=== PATIENT | male | born 1985 | race African-American/Black ===

== ENCOUNTER 2016-09-02 22:52 | Emergency (ER) | payer MEDICAID ==
[2016-09-02] MEDS ORDERED: LASIX IVP ONE ×2 (23:13)
--- NOTE | 2016-09-02 23:15 | DR.GENAD ---
HPI - PCP Primary Care Physician: troy - HPI Comment HPI Comment: PATIENT ON HEMODIALYSIS 3 TIMES WEEKLY. HE WENT FOR DIALYSIS FRIDAY BUT MISS TODAY. TONIGHT INCREASING SOB AND COUGHING FROSTY SPUTUM, - Complaint/Symptoms Chief Complaint Doctors Comments: INCREASING SOB, CHEST PAIN AND COUGH. Chief Complaint:: pt having periods of SOB unknowm if pt went too dialysis today pt refusing too answer questions at this time or either too SOB too answer. - Nurses notes reviewed Nurses Notes Review: Yes - Source History Provided: EMS - Mode of Arrival Mode of Arrival: EMS - Timing Onset of Chief Complaint: 09/02/16 Came on: Suddenly - Duration Duration: Constant Duration: Hours - Severity Severity: Moderate PMH - PMH Past Medical History: Yes Past Medical History: CHF, COPD, Hypertension, Renal Disease Past Surgical History: Yes Surgical History: Other - Family History History of Family Medical Conditions: Yes Family Medical History: Hypertension - Social History Alcohol Use: None Do you use any recreational Drugs:: No Lives With: Family Lives Where: Home - infectious screening In the last 2 months have you had wt loss of >10#?: NO Have you had fever, night sweats or hemotysis?: No Have you traveled outside the country in the last 6 months?: No Isolation: Standard ROS - Review of Systems Constitutional: Diaphoresis, Weakness, Fatigue. negative: Chills, Fever Eyes: No Symptoms Reported. negative: Eye Pain, Blurred Vision, Discharge, Photophobia ENTM: Nose Congestion. negative: Ear Pain, Nose Discharge, Throat Pain Respiratoy: Productive Cough, Short of Breath, Wheezing, Hemoptysis Cardiovascular: Chest Pain, Edema, Palpitations Gastrointestinal/Abdominal: Nausea. negative: Abdominal Pain, Diarrhea, Vomiting Genitourinary: negative: Dysuria, Hematuria Neurological: Weakness, Dizziness. negative: Headache Musculoskeletal: Muscle Pain Integumentary: No Symptoms Reported. negative: Change in Color, Rash, Juandice Hematologic/Lymphatic: Anemia Endocrine: No Symptoms Reported All Other Systems: Reviewed and Negative PE - Vital Signs Vitals: Temperature 97.7 F Pulse Rate [Apical] 85 Pulse Rate 93 Respiratory Rate 28 Blood Pressure [Right Arm] 165/83 Blood Pressure 234/118 O2 Sat by Pulse Oximetry 94 - General Limitations: Other (NOT TALKING DUE TO SOB) General Appearance: Alert, In Distress (ACUTE RESPIRATORY DISTRESS.) - Head Head Exam: Atraumatic - Eyes Eye exam: Normal Appearance, PERRL, EOMI. negative: Scleral Icterus, Conjunctival Injection, Nystagmus, Periorbital Swelling, Periorbital Tenderness - ENT ENT Exam: Normal External Ear Exam External Ear Exam: Normal External Inspection TM/Canal Exam: Bilateral Normal Nose Exam: Normal Nose Exam Mouth Exam: Normal Inspection Throat Exam: Normal Inspection - Neck Neck Exam: Trachea Midline, Other (DISTENDED NECK VEINS). negative: Tenderness , Meningismus, Lymphadenopathy - Chest Chest Inspection: Symmetric Chest Wall Rise - Respiratory Respiratory Exam: Respiratory Distress Respiratory Exam: Bilateral Wheezing, Bilateral Rhonchi, Left Rales, Upper Wheezing, Upper Rhonchi, Lower Wheezing, Lower Rales, Lower Rhonchi - Cardiovascular Cardiovascular Exam: Normal Rhythm, Tachycardia, Normal Heart Sounds, JVD, +S3, +S4 - Abdominal Exam Abdominal Exam: Normal Bowel Sounds, Soft. negative: Tenderness - Extremities Extremities Exam: Normal Inspection, Edema - Back Back Exam: Normal Inspection - Neurologic Neurological Exam: Alert, Oriented X3, Other (SOB CAUSING HIM NOT WANTING TO TALK) - Psychiatric Psychiatric Exam: Anxious - Skin Skin Exam: Erythema MDM - Differential Diagnosis Differential Diagnosis: ACUTE PULMONARY EDEMA, CHF. PNEUMONIA, CRF. Course - Treatment Treatment: SEE ORDERS - Consultation Consultation Comments: PATIENT ACCEPTED FOR TRANSFER BY DR. JOHANSEN, HOSPITALIST AT [facility]. - Education/Counseling Education/Counseling: Patient, Education Educated On: Treatment, Diagnosis ROR - Labs Reviewed Laboratory Results Reviewed?: Yes Result Diagrams: 09/02/16 23:18 09/02/16 23:18 Laboratory: 09/03/16 00:23 Sputum - Expectorated Sputum - Final WBC 14.3 X10^3/uL (3.6-10.0) H 09/02/16 23:18 RBC 2.56 X10^6/uL (4.7-6.0) L 09/02/16 23:18 Hgb 7.2 g/dL (13.5-18.0) L 09/02/16 23:18 Hct 22.6 % (42.0-54.0) L 09/02/16 23:18 MCV 88.2 fL (80.0-100.0) 09/02/16 23:18 MCH 27.9 pg (27.0-34.0) 09/02/16 23:18 MCHC 31.6 g/dL (33.0-35.0) L 09/02/16 23:18 RDW 21.1 % (11.6-16.5) H 09/02/16 23:18 Plt Count 221 X10^3/uL (150.0-450.0) 09/02/16 23:18 Plt Count Comment Adequate (ADEQUATE) 09/02/16 23:18 MPV 9.1 fL (7.4-11.0) 09/02/16 23:18 Neut % 84.3 % (42.0-75.0) H 09/02/16 23:18 Lymph % 5.5 % (21.0-51.0) L 09/02/16 23:18 [place] % 4.6 % (0.0-13.0) 09/02/16 23:18 Eos % 5.0 % (0.9-2.9) H 09/02/16 23:18 Baso % 0.6 % (0.2-1.0) 09/02/16 23:18 Neut # 12.1 x10^3/uL (2.2-4.8) H 09/02/16 23:18 Lymph # 0.8 X10^3/uL (1.3-2.9) L 09/02/16 23:18 [place] # 0.7 x10^3/uL (0.3-0.8) 09/02/16 23:18 Eos # 0.7 x10^3/uL (0.0-0.2) H 09/02/16 23:18 Baso # 0.1 X10^3/uL (0.0-0.1) 09/02/16 23:18 Absolute Nucleated RBC 0.0 /100WBC 09/02/16 23:18 Plt Morphology Comment Normal (NORMAL) 09/02/16 23:18 RBC Morphology Abnormal (NORMAL) 09/02/16 23:18 Hypochromasia 1+ A 09/02/16 23:18 Anisocytosis 1+ A 09/02/16 23:18 Sample Site [facility] 09/02/16 23:18 ABG pH 7.400 (7.35-7.45) 09/02/16 23:18 ABG pCO2 43.0 mmHg (35.0-45.0) 09/02/16 23:18 ABG pO2 223.0 mmHg (80.0-100.0) H 09/02/16 23:18 ABG HCO3 26.6 mmol/L (22-26) H 09/02/16 23:18 ABG O2 Saturation 100.0 % (90-100) 09/02/16 23:18 ABG Base Excess 1.5 mmol/L (-2.0-2.0) 09/02/16 23:18 Brandyn Test Na 09/02/16 23:18 A-a Gradient 436.0 mmHg 09/02/16 23:18 FiO2 100.000 09/02/16 23:18 Blood Gas Comments Juli abg well-mtf 09/02/16 23:18 Sodium 144 mmol/L (136-145) 09/02/16 23:18 Corrected Sodium TNP 09/02/16 23:18 Potassium 3.9 mmol/L (3.5-5.1) 09/02/16 23:18 Chloride 102 mmol/L (98-107) 09/02/16 23:18 Carbon Dioxide 25.6 mmol/L (21-32) 09/02/16 23:18 BUN 64 mg/dL (7-18) H 09/02/16 23:18 Creatinine 13.93 mg/dL (0.70-1.30) H 09/02/16 23:18 Est GFR (MDRD) Af Amer 5 (>60) L 09/02/16 23:18 Est GFR (MDRD) Non-Af 4 (>60) L 09/02/16 23:18 Glucose 93 mg/dL (65-99) 09/02/16 23:18 Calcium 9.4 mg/dL (8.5-10.1) 09/02/16 23:18 Corrected Calcium TNP 09/02/16 23:18 Total Bilirubin 0.40 mg/dL (0.2-1.0) 09/02/16 23:18 AST 34 Units/L (15-37) 09/02/16 23:18 ALT 61 Units/L (12-78) 09/02/16 23:18 Alkaline Phosphatase 145 Units/L (46-116) H 09/02/16 23:18 Creatine Kinase 270 Units/L (39-308) 09/02/16 23:18 CK-MB (CK-2) 2.1 ng/mL (0-4.0) 09/02/16 23:18 CK/CKMB % Calc 0.8 % (<4) 09/02/16 23:18 Troponin I 0.03 ng/mL (0-1.5) 09/02/16 23:18 B-Natriuretic Peptide 1520 pg/mL (0-79) H* 09/02/16 23:18 Total Protein 9.1 g/dL (6.4-8.2) H 09/02/16 23:18 Albumin 4.2 g/dL (3.4-5.0) 09/02/16 23:18 Globulin 4.9 g/dL (2.5-4.5) H 09/02/16 23:18 Albumin/Globulin Ratio 0.9 Ratio (1.1-2.1) L 09/02/16 23:18 - XRAY XRAY Interpreted by: Radiologist XRAY Findings: REPORT DISCUSS WITH PATIENT. - EKG Rhythm: ST (EKG NOTED.) - Diagnosis Discharge Problem: CHF (congestive heart failure), Pulmonary vascular congestion, Dialysis patient , End stage renal disease - Discharge Plan Disposition: 02 XFER SHT-TRM HOSP Condition: Stable - Follow ups/Referrals Follow ups/Referrals: NFD,None [Primary Care Provider] - 3 days - Instructions
[2016-09-02 23:22] LABS: ABG BASE EXCESS 1.5 mmol/L (-2.0-2.0); ABG HCO3 26.6 mmol/L (22-26)
[2016-09-02 23:30] LABS: BASOPHILS # (AUTO) 0.1 X10^3/uL (0.0-0.1); BASOPHILS % (AUTO) 0.6 % (0.2-1.0); EOSINOPHILS # (AUTO) 0.7 x10^3/uL (0.0-0.2); HEMATOCRIT 22.6 % (42.0-54.0); HEMOGLOBIN 7.2 g/dL (13.5-18.0); LYMPHOCYTES # (AUTO) 0.8 X10^3/uL (1.3-2.9); LYMPHOCYTES % (AUTO) 5.5 % (21.0-51.0); MEAN CORPUSCULAR HEMOGLOBIN 27.9 pg (27.0-34.0); MEAN CORPUSCULAR HGB CONC 31.6 g/dL (33.0-35.0); MEAN CORPUSCULAR VOLUME 88.2 fL (80.0-100.0); MEAN PLATELET VOLUME 9.1 fL (7.4-11.0); MONOCYTES # (AUTO) 0.7 x10^3/uL (0.3-0.8); MONOCYTES % (AUTO) 4.6 % (0.0-13.0); NEUTROPHILS # (AUTO) 12.1 x10^3/uL (2.2-4.8); NEUTROPHILS % (AUTO) 84.3 % (42.0-75.0); PLATELET COUNT 221 X10^3/uL (150.0-450.0); RED BLOOD COUNT 2.56 X10^6/uL (4.7-6.0); RED CELL DISTRIBUTION WIDTH 21.1 % (11.6-16.5); WHITE BLOOD COUNT 14.3 X10^3/uL (3.6-10.0)
[2016-09-02 23:40] LABS: ANISOCYTOSIS 1+; PLATELET MORPHOLOGY COMMENT NORMAL (NORMAL)
[2016-09-02 23:41] LABS: HYPOCHROMASIA 1+
[2016-09-02 23:50] LABS: BLOOD UREA NITROGEN 64 mg/dL (7-18); CALCIUM 9.4 mg/dL (8.5-10.1); CARBON DIOXIDE 25.6 mmol/L (21-32); CHLORIDE 102 mmol/L (98-107); CREATININE 13.93 mg/dL (0.70-1.30); GLUCOSE 93 mg/dL (65-99); SODIUM 144 mmol/L (136-145); TROPONIN I 0.03 ng/mL (0-1.5); eGFR BLACK RACES 5 (>60); eGFR NON BLACK RACES 4 (>60)
[2016-09-02 23:52] LABS: ALANINE AMINOTRANSFERASE 61 Units/L (12-78); ALBUMIN 4.2 g/dL (3.4-5.0); ALKALINE PHOSPHATASE 145 Units/L (46-116); ASPARTATE AMINO TRANSFERASE 34 Units/L (15-37); CKMB % 0.8 % (<4); CREATINE KINASE 270 Units/L (39-308); CREATINE KINASE MB 2.1 ng/mL (0-4.0); TOTAL PROTEIN 9.1 g/dL (6.4-8.2)
--- NOTE | 2016-09-02 23:58 | RAD ---
EXAM: Chest X-ray INDICATION: Shortness of breath COMPARISION: Prior exam from August 08, 2016 TECHNIQUE: Single view FINDINGS: The heart is moderately enlarged and there is central vascular congestion. The interstitial markings are prominent bilaterally. No pneumothorax. There is consolidation the left lower lobe. There is a small left pleural effusion. The regional skeleton is intact. Right tunnel catheter tip is in the daugherty perior vena cava. IMPRESSION: Findings are most characteristic of changes associated congestive heart failure. There is cardiomega ly, central vascular congestion, and interstitial edema. There is consolidation the left lower lobe and a small left pleural effusion. Reported By:
[2016-09-02 23:59] LABS: B-TYPE NATRIURETIC PEPTIDE 1520 pg/mL (0-79)
[2016-09-03] MEDS ORDERED: VASOTEC INJ 1.25 MG VIAL IVP ONE (00:19)
[2016-09-03] MEDS ORDERED: VASOTEC INJ 1.25 MG VIAL ONE (00:23)
[2016-09-03] MEDS ORDERED: NORMODYNE INJ 20 MG VIAL IVP ONE ×2 (00:53→02:17)
[2016-09-03] MEDS ORDERED: BUMEX INJ 1 MG VIAL IVP SCH (01:00)
[2016-09-03] MEDS ORDERED: NORMODYNE INJ 20 MG VIAL ONE (01:01)
[2016-09-03] MEDS ORDERED: BUMEX TAB 1 MG ONE (01:01)
[2016-09-03] MEDS ORDERED: DUONEB 0.5 MG/3 MG ONE (01:03)
[2016-09-03] MEDS ORDERED: BUMEX INJ 1 MG VIAL ONE (01:03)
[2016-09-03] MEDS ORDERED: DUONEB 0.5 MG/3 MG NEB ONE (01:05)
[2016-09-03] MEDS ORDERED: NORMODYNE INJ 100 MG VIAL 250 MG in NS 250 ML IV 200 ML IV PRN (02:17)
[2016-09-03 02:48] VITALS: BP 165/83
== END 2016-09-03 03:00 | disposition short-term general hospital (02) ==
LOC: ER 22:52
DX: I50.9 Heart failure, unspecified (principal); J81.1 Chronic pulmonary edema; N18.6 End stage renal disease; Z99.2 Dependence on renal dialysis; R06.02 Shortness of breath
CPT/HCPCS: 36415; 36600; 71010; 80053; 82550; 82553; 82803; 83880; 84484; 85025; 87040; 87070; 87205; 93005; 93010; 94640; 96365; 96374; 96375; 99283; 99285; A4222; S0171; J1940; J3490; J7620

== ENCOUNTER 2017-01-01 00:32 | Emergency (ER) | payer MEDICAID ==
[2017-01-01 00:40] VITALS: BMI 26.6
[2017-01-01] MEDS ORDERED: APRESOLINE TAB 25 MG PO ONE (00:41)
[2017-01-01] MEDS ORDERED: NORMODYNE TAB 200 MG PO ONE (00:42)
[2017-01-01] MEDS ORDERED: NIFEDIPINE CAP 10 MG PO ONE ×3 (00:42→09:37)
[2017-01-01] MEDS ORDERED: CATAPRES TAB 0.2 MG PO ONE (00:43)
--- NOTE | 2017-01-01 00:44 | DR.GENAD ---
HPI - Complaint/Symptoms Chief Complaint Doctors Comments: complaint of shortness of breath at home. Took xanax at home and feels better. Oxygen sats are 89% Room Air. - Nurses notes reviewed Nurses Notes Review: Yes - Source History Provided: Patient - Mode of Arrival Mode of Arrival: EMS - Timing Came on: Suddenly - Duration How lon Duration: Hours - Location Location: lungs - Severity Severity: Moderate - Modifying Factors Worsens:: anxiety - Associated Signs and Symptoms Associated Signs and Symptoms: dialysis patient - Other History Other History: Hx of sleep apnea PMH - PMH Past Medical History: CHF, COPD, Hypertension, Renal Disease Past Surgical History: Yes Surgical History: Other Unable to Obtain Due To: denies: Altered mental status, Dementia - Family History Family Medical History: Hypertension - Social History Do you use any recreational Drugs:: No Lives Where: Home - infectious screening In the last 2 months have you had wt loss of >10#?: NO Have you had fever, night sweats or hemotysis?: No Have you traveled outside the country in the last 6 months?: No ROS - Review of Systems Constitutional: No Symptoms Reported Eyes: No Symptoms Reported ENTM: No Symptoms Reported Respiratoy: Short of Breath Cardiovascular: Other (hypertension) Gastrointestinal/Abdominal: No Symptoms Reported Genitourinary: No Symptoms Reported Neurological: No Symptoms Reported Musculoskeletal: No Symptoms Reported Integumentary: No Symptoms Reported Hematologic/Lymphatic: No Symptoms Reported Endocrine: No Symptoms Reported Psychiatric: Depression PE - Vital Signs Vitals: Temperature 98.6 F Pulse Rate 101 Respiratory Rate 24 Blood Pressure [Right Arm] 165/83 Blood Pressure 245/116 O2 Sat by Pulse Oximetry 94 - General Limitations: No Limitations General Appearance: Alert, In No Apparent Distress - Head Head Exam: Normal Inspection - Eyes Eye exam: Normal Appearance, EOMI. negative: Scleral Icterus, Conjunctival Injection - ENT ENT Exam: Normal Exam External Ear Exam: Normal External Inspection - Neck Neck Exam: Normal Inspection, Full ROM, Trachea Midline - Chest Chest Inspection: Normal Inspection - Respiratory Respiratory Exam: Normal Lung Sounds Bilat. negative: Accessory Muscle Use, Respiratory Distress Respiratory Exam: Bilateral Clear to Auscultation - Cardiovascular Cardiovascular Exam: Regular Rate - Abdominal Exam Abdominal Exam: Normal Inspection - Extremities Extremities Exam: Normal Inspection, Full ROM - Back Back Exam: Normal Inspection - Neurologic Neurological Exam: Alert, Oriented X3, CN II-XII Intact - Psychiatric Psychiatric Exam: Depressed - Skin Skin Exam: Intact, Normal Color ROR - XRAY XRAY Interpreted by: Radiologist XRAY Findings: CXR: CM with moderate CHF - Diagnosis Discharge Problem: CHF (congestive heart failure) Qualifiers: Congestive heart failure type: unspecified congestive heart failure type Congestive heart failure chronicity: chronic Qualified Code(s): I50.9 - Heart failure, unspecified Hypertension Qualifiers: Hypertension type: renovascular hypertension Qualified Code(s): I15.0 - Renovascular hypertension - Discharge Plan Condition: Stable - Follow ups/Referrals Follow ups/Referrals: NFD,None [Primary Care Provider] - 3 days - Instructions
[2017-01-01] MEDS ORDERED: LASIX IVP ONE (00:52)
[2017-01-01] MEDS ORDERED: NIFEDIPINE CAP 10 MG ONE ×2 (00:55→09:35)
[2017-01-01] MEDS ORDERED: CATAPRES TAB 0.2 MG ONE (01:33)
--- NOTE | 2017-01-01 01:38 | RAD ---
Chest, one view Indication: Shortness of breath. Comparison: 09/02/2016 Findings: Cardiac silhouette enlargement and pulmonary vascular congestion are unchanged. There are central and basilar predominant interstitial and airspace opacities with small left-sided pleural ef fusion, similar to prior. There has been interval removal of the left jugular dialysis catheter. Impression: Cardiomegaly with findings of moderate CHF. Reported By:
[2017-01-01] MEDS ORDERED: NORMODYNE INJ 100 MG VIAL IVP ONE ×2 (02:09→03:14)
[2017-01-01] MEDS ORDERED: NORMODYNE INJ 20 MG VIAL ONE ×2 (02:10→03:16)
[2017-01-01] MEDS ORDERED: APRESOLINE INJ 20 MG VIAL IVP ONE (07:04)
[2017-01-01] MEDS ORDERED: APRESOLINE INJ 20 MG VIAL ONE (07:04)
[2017-01-01] MEDS ORDERED: LASIX IVP SCH (09:00)
[2017-01-01 09:05] LABS: BASOPHILS # (AUTO) 0.1 X10^3/uL (0.0-0.1); BASOPHILS % (AUTO) 0.8 % (0.2-1.0); EOSINOPHILS # (AUTO) 0.3 x10^3/uL (0.0-0.2); EOSINOPHILS % (AUTO) 4.1 % (0.9-2.9); HEMATOCRIT 24.4 % (42.0-54.0); HEMOGLOBIN 8.1 g/dL (13.5-18.0); LYMPHOCYTES # (AUTO) 0.5 X10^3/uL (1.3-2.9); LYMPHOCYTES % (AUTO) 6.9 % (21.0-51.0); MEAN CORPUSCULAR HEMOGLOBIN 29.6 pg (27.0-34.0); MEAN CORPUSCULAR HGB CONC 33.1 g/dL (33.0-35.0); MEAN CORPUSCULAR VOLUME 89.4 fL (80.0-100.0); MEAN PLATELET VOLUME 7.8 fL (7.4-11.0); MONOCYTES # (AUTO) 0.5 x10^3/uL (0.3-0.8); MONOCYTES % (AUTO) 7.3 % (0.0-13.0); NEUTROPHILS % (AUTO) 80.9 % (42.0-75.0); PLATELET COUNT 128 X10^3/uL (150.0-450.0); RED BLOOD COUNT 2.73 X10^6/uL (4.7-6.0); WHITE BLOOD COUNT 7.5 X10^3/uL (3.6-10.0)
[2017-01-01 09:19] LABS: BLOOD UREA NITROGEN 68 mg/dL (7-18); CARBON DIOXIDE 28.4 mmol/L (21-32); CHLORIDE 102 mmol/L (98-107); GLUCOSE 84 mg/dL (65-99); SODIUM 141 mmol/L (136-145); TROPONIN I 0.18 ng/mL (0-1.5); eGFR BLACK RACES 7 (>60); eGFR NON BLACK RACES 5 (>60)
[2017-01-01 09:23] LABS: ALANINE AMINOTRANSFERASE 55 Units/L (12-78); ALBUMIN 3.8 g/dL (3.4-5.0); ALKALINE PHOSPHATASE 166 Units/L (46-116); ASPARTATE AMINO TRANSFERASE 39 Units/L (15-37); CKMB % 0.7 % (<4); CREATINE KINASE 242 Units/L (39-308); CREATINE KINASE MB 1.7 ng/mL (0-4.0); TOTAL PROTEIN 8.7 g/dL (6.4-8.2)
[2017-01-01] MEDS ORDERED: XANAX PO ONE (09:58)
[2017-01-01] MEDS ORDERED: XANAX ONE (09:59)
[2017-01-01] MEDS ORDERED: VANCOMYCIN 1 GM PREMIX (ADDVANTAGE) 250 ML IV NR (10:00)
[2017-01-01] MEDS ORDERED: VANCOMYCIN HCL 1 GM VIAL ONE (10:04)
[2017-01-01] MEDS ORDERED: NS 250 ML IV 250 ML IV ONE (10:04)
[2017-01-01 10:07] VITALS: BP 170/82
[2017-01-01 10:22] LABS: BILIRUBIN,URINE NEGATIVE (NEGATIVE); BLOOD/HEMOGLOBIN,URINE 2+ (NEGATIVE); GLUCOSE, URINE 1+ (NEGATIVE); KETONES,URINE NEGATIVE (NEGATIVE); LEUKOCYTE ESTERASE ,URINE NEGATIVE (NEGATIVE); NITRITES,URINE NEGATIVE (NEGATIVE); PROTEIN,URINE 3+ (NEGATIVE); UROBILINOGEN,URINE NORMAL (NORMAL)
[2017-01-01 10:29] LABS: APPEARANCE,URINE HAZY (CLEAR); BACTERIA,URINE TRACE /HPF (NEGATIVE); COLOR,URINE YELLOW (YELLOW); RBC,URINE 0-2 /HPF (NEGATIVE); SQUAMOUS EPITHELIAL CELL,UR RARE /HPF (NEGATIVE)
== END 2017-01-01 12:15 | disposition short-term general hospital (02) ==
LOC: ER 00:32
DX: I50.9 Heart failure, unspecified (principal); I15.0 Renovascular hypertension
CPT/HCPCS: 36415; 71010; 80053; 81001; 82550; 82553; 84484; 85025; 87040; 87070; 87205; 93041; 96365; 96374; 96375; 99284; 99285; A4222; J0360; J1940; J3370; J3490

== ENCOUNTER → 2017-04-07 | Outpatient (CLI) | payer MEDICAID ==
--- NOTE | 2017-04-08 08:04 | US ---
HISTORY: Left upper extremity pain and swelling around vascular shunt Study: Left upper extremity ultrasound: Multiplanar ultrasonographic examination of the left upper e xtremity vascular shunt was performed using color, grayscale and Doppler imaging. Comparison: None Findings: On the images submitted to [place] the left upper extremity vascular shunt is widely patent. No intralumin al filling defects are identified. No soft tissue abnormalities are identified. IMPRESSION: 1. The left upper extremity vascular shunt appears to be widely patent. Reported By:
== END | disposition home or self-care (01) | DRG 556 ==
LOC: RAD 13:22
PROVIDERS: ATTEND Specialist
DX: M79.602 Pain in left arm (principal); M79.89 Other specified soft tissue disorders; Z95.828 Presence of other vascular implants and grafts
CPT/HCPCS: 76881